=== PATIENT | male | born 1970 | race Caucasian/White ===

== ENCOUNTER 2024-12-02 07:40 | Outpatient (CLI) | payer OTHER | END 2024-12-02 07:47 | disposition home or self-care (01) | LOC: MRI 07:40 | DX: K57.30 Diverticulosis of large intestine without perforation or abscess without bleeding (principal); R10.32 Left lower quadrant pain; R63.4 Abnormal weight loss; R10.30 Lower abdominal pain, unspecified; D50.9 Iron deficiency anemia, unspecified | CPT/HCPCS: 72197; 74181; 74183 ==